=== PATIENT | female | born 1950 | race Caucasian/White ===

== ENCOUNTER 2017-10-26 09:37 | Emergency (ER) | payer MEDICARE, MEDICAID ==
[~2017-10-26] VITALS: Ht 165.1 cm; Wt 75.0 kg
[~2017-10-26 09:37] MED LIST: CALC-1092 PO; IBUP-1986 PO
[2017-10-26 09:40] VITALS: BP 142/92
[2017-10-26] MEDS ORDERED: TRAM50TA2 PO (10:13)
== END 2017-10-26 10:31 | disposition home or self-care (01) ==
LOC: ER 09:38
DX: M25.532 Pain in left wrist (principal); G89.29 Other chronic pain; J44.9 Chronic obstructive pulmonary disease, unspecified; M19.90 Unspecified osteoarthritis, unspecified site; Z98.890 Other specified postprocedural states; Z88.2 Allergy status to sulfonamides; Z79.899 Other long term (current) drug therapy
CPT/HCPCS: 29125; 73110; 99284

== ENCOUNTER 2017-11-29 12:50 | Inpatient (IN) | payer MEDICARE, MEDICAID ==
[~2017-11-29] VITALS: Ht 165.1 cm; Wt 74.0 kg
[2017-11-29] MEDS ORDERED: normal saline 1000ML IV soln IVB ONE (13:35)
[2017-11-29] MEDS ORDERED: pantoprazole 40 MG vial IV ONE (13:35)
[2017-11-29 13:43] LABS: BASOPHILS % (AUTO) 0.2 % (0-1); EOSINOPHILS # (AUTO) 0.1 X10'3 (0-0.9); HEMATOCRIT 46.9 % (35.0-45.0); HEMOGLOBIN 16.5 g/dl (12.0-16.0); LYMPHOCYTES # (AUTO) 1.5 X10'3 (1.1-4.8); LYMPHOCYTES % (AUTO) 11.1 % (21-51); MEAN CORPUSCULAR HEMOGLOBIN 30.8 PG (27.0-31.0); MEAN CORPUSCULAR HGB CONC 35.3 % (33.0-36.5); MEAN CORPUSCULAR VOLUME 87.3 FL (78-98); MEAN PLATELET VOLUME 6.8 FL (7.4-10.4); MONOCYTES # (AUTO) 0.4 X10'3 (0-0.9); NEUTROPHILS # (AUTO) 11.3 X10'3 (1.8-7.7); NEUTROPHILS % (AUTO) 84.7 % (42-75); PLATELET COUNT 328 X10'3 (140-440); RED BLOOD COUNT 5.37 X10'6 (4.20-5.60); RED CELL DISTRIBUTION WIDTH 13.6 % (11.5-14.5); WHITE BLOOD COUNT 13.4 X10'3 (4.5-11.0)
[2017-11-29 13:50] LABS: CLARITY,URINE SLIGHTLY CLOUDY (Clear); COLOR,URINE AMBER (Yellow); GLUCOSE, URINE NEGATIVE (Neg); KETONES,URINE 15 mg/dl (Neg); LEUKOCYTE ESTERASE ,URINE NEGATIVE (Neg); NITRITES, URINE NEGATIVE (Neg); OCCULT BLOOD,URINE MODERATE (Neg); PH,URINE 5.5 (4.8-8.0); PROTEIN,URINE 30 mg/dl (Neg)
[2017-11-29 13:52] LABS: UA COLLECTION TYPE NON-SPECIFIED
[2017-11-29 13:55] LABS: PARTIAL THROMBOPLASTIN TIME 26 SECONDS (22-32); PROTHROMBIN TIME 10.4 SECONDS (9.0-12.0)
[2017-11-29 14:00] LABS: ALANINE AMINOTRANSFERASE 23 U/L (12-78); ALBUMIN 4.4 G/DL (3.4-5.0); ALBUMIN/GLOBULIN RATIO 1.2 (1.1-1.5); ALKALINE PHOSPHATASE 78 IU/L (46-116); ANION GAP 11 (8-16); ASPARTATE AMINO TRANSFERASE 17 U/L (10-37); BILIRUBIN,TOTAL 1.7 MG/DL (0.1-1.0); BLOOD UREA NITROGEN 13 MG/DL (7-18); BUN/CREATININE RATIO 15.1 (6.6-38.0); CALCIUM 9.5 MG/DL (8.5-10.1); CHLORIDE 98 MMOL/L (99-107); CREATININE 0.86 MG/DL (0.40-0.90); GLUCOSE 118 MG/DL (70-104); LIPASE 79 U/L (73-393); POTASSIUM 3.5 MMOL/L (3.5-5.1); SODIUM 138 MMOL/L (135-145); TOTAL CARBON DIOXIDE 28.8 MMOL/L (24-32); TOTAL PROTEIN 8.1 G/DL (6.4-8.2); eGFR 66 ML/MIN
[2017-11-29 14:10] LABS: BACTERIA,URINE 1+ /HPF (Neg); MUCUS STRANDS MANY /LPF (Neg); SQUAMOUS EPITHELIAL CELL,UR MANY /LPF (FEW); WBC,URINE 0-4 /HPF (0-4)
[2017-11-29 14:58] LABS: TOTAL CELLS COUNTED 100
[2017-11-29 14:59] LABS: PLATELET ESTIMATE NORMAL
[2017-11-29] MEDS ORDERED: ATOR20TA10 PO (15:25)
[2017-11-29] MEDS ORDERED: OMEP-50 PO (15:26)
[2017-11-29] MEDS ORDERED: levoFLOXACIN-Levaquin 500mg/D5 100 ML IV ONE (15:50)
[2017-11-29] MEDS ORDERED: metroNIDAZOLE-Flagyl 500mg/NS 100 ML IV ONE (15:50)
[2017-11-29] MEDS: normal saline 1000ml 1,000 ML IV SCH ×2 (16:08→23:48)
[2017-11-29] MEDS ORDERED: potassium Cl 20 mEq SR tablet PO PRN (16:10)
[2017-11-29] MEDS ORDERED: metoclopramide 5 mg/ml inj IV PRN (16:10)
[2017-11-29] MEDS ORDERED: HYDROcodone/acetaminophen 5mg/325mg tablet PO PRN (16:10)
[2017-11-29] MEDS: K and/or MAG REPLACEMENT MC SCH (16:10)
[2017-11-29] MEDS ORDERED: magnesium hydroxide 30ml (MOM) UD suspension PO PRN (16:10)
[2017-11-29] MEDS ORDERED: diphenhydrAMINE 50 mg/ml inj IV PRN (16:10)
[2017-11-29] MEDS ORDERED: magnesium 2GM in 50ml NS 50 ML IV PRN (16:10)
[2017-11-29] MEDS ORDERED: potassium Cl 40MEQ/NS 500ml 500 ML IV PRN ×2 (16:10)
[2017-11-29] MEDS ORDERED: ondansetron/PF 4mg/2ml inj IV PRN (16:10)
[2017-11-29] MEDS ORDERED: morphine 2 MG/ML inj. syringe IV PRN ×2 (16:10)
[2017-11-29] MEDS ORDERED: mag hydrox/Alum hydrox/simeth 30ml oral suspension PO PRN (16:10)
[2017-11-29] MEDS ORDERED: magnesium Cl slow-release 64mg tablet PO PRN (16:10)
[2017-11-29] MEDS ORDERED: magnesium 4gm in 100ml NS 100 ML IV PRN (16:10)
[2017-11-29] MEDS ORDERED: acetaminophen 325mg tablet PO PRN ×2 (16:10)
[2017-11-29 16:52] LABS: HEMATOCRIT 42.8 % (35.0-45.0); MEAN CORPUSCULAR HEMOGLOBIN 30.6 PG (27.0-31.0); MEAN CORPUSCULAR VOLUME 87.4 FL (78-98); MEAN PLATELET VOLUME 6.7 FL (7.4-10.4); PLATELET COUNT 294 X10'3 (140-440); RED CELL DISTRIBUTION WIDTH 13.8 % (11.5-14.5); WHITE BLOOD COUNT 11.4 X10'3 (4.5-11.0)
[2017-11-29 19:30] VITALS: BP 138/75
[2017-11-29] MEDS ORDERED: temazepam 15mg capsule PO PRN (21:00)
[2017-11-29 22:17] LABS: HEMATOCRIT 36.6 % (35.0-45.0); HEMOGLOBIN 13.2 g/dl (12.0-16.0); MEAN CORPUSCULAR HEMOGLOBIN 30.9 PG (27.0-31.0); MEAN CORPUSCULAR HGB CONC 35.9 % (33.0-36.5); MEAN CORPUSCULAR VOLUME 85.8 FL (78-98); MEAN PLATELET VOLUME 6.5 FL (7.4-10.4); PLATELET COUNT 264 X10'3 (140-440); RED BLOOD COUNT 4.27 X10'6 (4.20-5.60); RED CELL DISTRIBUTION WIDTH 13.4 % (11.5-14.5); WHITE BLOOD COUNT 10.5 X10'3 (4.5-11.0)
[2017-11-29] MEDS: metroNIDAZOLE-Flagyl 500mg/NS 100 ML IV SCH (23:47)
[2017-11-30] VITALS: BP 126/66
[2017-11-30 07:00] VITALS: BP 116/78
[2017-11-30 07:41] LABS: BASOPHILS % (AUTO) 0 % (0-1); EOSINOPHILS # (AUTO) 0.1 X10'3 (0-0.9); EOSINOPHILS % (AUTO) 1.7 % (0-6); HEMATOCRIT 36.8 % (35.0-45.0); LYMPHOCYTES # (AUTO) 1.1 X10'3 (1.1-4.8); LYMPHOCYTES % (AUTO) 12.8 % (21-51); MEAN CORPUSCULAR HEMOGLOBIN 30.6 PG (27.0-31.0); MEAN CORPUSCULAR HGB CONC 35.3 % (33.0-36.5); MEAN CORPUSCULAR VOLUME 86.6 FL (78-98); MEAN PLATELET VOLUME 6.4 FL (7.4-10.4); MONOCYTES # (AUTO) 0.4 X10'3 (0-0.9); MONOCYTES % (AUTO) 4.6 % (2-12); NEUTROPHILS # (AUTO) 7.1 X10'3 (1.8-7.7); NEUTROPHILS % (AUTO) 80.9 % (42-75); PLATELET COUNT 254 X10'3 (140-440); RED BLOOD COUNT 4.25 X10'6 (4.20-5.60); RED CELL DISTRIBUTION WIDTH 13.3 % (11.5-14.5); WHITE BLOOD COUNT 8.8 X10'3 (4.5-11.0)
[2017-11-30] MEDS: levoFLOXACIN-Levaquin 750MG/D5 150 ML IV SCH (08:00)
[2017-11-30] MEDS: K and/or MAG REPLACEMENT MC SCH (08:00)
[2017-11-30 08:15] LABS: ALANINE AMINOTRANSFERASE 20 U/L (12-78); ALBUMIN 2.9 G/DL (3.4-5.0); ALKALINE PHOSPHATASE 51 IU/L (46-116); ANION GAP 12 (8-16); ASPARTATE AMINO TRANSFERASE 13 U/L (10-37); BILIRUBIN,TOTAL 1.1 MG/DL (0.1-1.0); BLOOD UREA NITROGEN 7 MG/DL (7-18); BUN/CREATININE RATIO 13.2 (6.6-38.0); CHLORIDE 108 MMOL/L (99-107); CREATININE 0.53 MG/DL (0.40-0.90); GLUCOSE 77 MG/DL (70-104); MAGNESIUM 1.7 MG/DL (1.5-2.4); PHOSPHORUS 1.9 MG/DL (2.3-4.5); POTASSIUM 3.4 MMOL/L (3.5-5.1); SODIUM 142 MMOL/L (135-145); TOTAL CARBON DIOXIDE 22.5 MMOL/L (24-32); TOTAL PROTEIN 5.7 G/DL (6.4-8.2); eGFR > 90 ML/MIN
[2017-11-30] MEDS: atorvastatin 20mg tablet PO SCH (09:30)
[2017-11-30] MEDS: metroNIDAZOLE-Flagyl 500mg/NS 100 ML IV SCH ×2 (09:30→16:40)
[2017-11-30] MEDS: pantoprazole 40 MG vial IV SCH (09:30)
[2017-11-30 10:24] LABS: HEMATOCRIT 35.4 % (35.0-45.0); HEMOGLOBIN 12.7 g/dl (12.0-16.0); MEAN CORPUSCULAR HEMOGLOBIN 30.6 PG (27.0-31.0); MEAN CORPUSCULAR HGB CONC 35.8 % (33.0-36.5); MEAN CORPUSCULAR VOLUME 85.3 FL (78-98); MEAN PLATELET VOLUME 6.5 FL (7.4-10.4); PLATELET COUNT 247 X10'3 (140-440); RED BLOOD COUNT 4.15 X10'6 (4.20-5.60); RED CELL DISTRIBUTION WIDTH 13.6 % (11.5-14.5); WHITE BLOOD COUNT 9.8 X10'3 (4.5-11.0)
[2017-11-30 11:00] VITALS: BP 123/69
[2017-11-30] MEDS: normal saline 1000ml 1,000 ML IV SCH ×3 (11:29→21:05)
[2017-11-30] MEDS: potassium Cl 20 mEq SR tablet PO PRN (15:04)
[2017-11-30 19:00] VITALS: BP 126/63
[2017-11-30] MEDS ORDERED: PEG 3350/Na sulf,bicarb,Cl/KCl oral sol 4 liter bottle PO ONE (19:45)
[2017-12-01] VITALS (9 sets, daily range): BP systolic 121–162; BP diastolic 67–88
[2017-12-01] MEDS: metroNIDAZOLE-Flagyl 500mg/NS 100 ML IV SCH ×2 (00:17→08:45)
[2017-12-01 05:15] LABS: BASOPHILS % (AUTO) 0.3 % (0-1); EOSINOPHILS # (AUTO) 0.1 X10'3 (0-0.9); EOSINOPHILS % (AUTO) 1.5 % (0-6); HEMATOCRIT 33.9 % (35.0-45.0); HEMOGLOBIN 11.9 g/dl (12.0-16.0); LYMPHOCYTES # (AUTO) 1.6 X10'3 (1.1-4.8); LYMPHOCYTES % (AUTO) 20.1 % (21-51); MEAN CORPUSCULAR HEMOGLOBIN 30.4 PG (27.0-31.0); MEAN CORPUSCULAR HGB CONC 35.1 % (33.0-36.5); MEAN CORPUSCULAR VOLUME 86.5 FL (78-98); MEAN PLATELET VOLUME 6.8 FL (7.4-10.4); MONOCYTES # (AUTO) 0.5 X10'3 (0-0.9); MONOCYTES % (AUTO) 6.3 % (2-12); NEUTROPHILS # (AUTO) 5.8 X10'3 (1.8-7.7); NEUTROPHILS % (AUTO) 71.8 % (42-75); PLATELET COUNT 259 X10'3 (140-440); RED BLOOD COUNT 3.92 X10'6 (4.20-5.60); WHITE BLOOD COUNT 8.1 X10'3 (4.5-11.0)
[2017-12-01 05:56] LABS: ALANINE AMINOTRANSFERASE 20 U/L (12-78); ALBUMIN 2.9 G/DL (3.4-5.0); ALKALINE PHOSPHATASE 55 IU/L (46-116); ANION GAP 10 (8-16); ASPARTATE AMINO TRANSFERASE 14 U/L (10-37); BILIRUBIN,TOTAL 0.7 MG/DL (0.1-1.0); BLOOD UREA NITROGEN 4 MG/DL (7-18); BUN/CREATININE RATIO 7.5 (6.6-38.0); CALCIUM 7.7 MG/DL (8.5-10.1); CHLORIDE 110 MMOL/L (99-107); CREATININE 0.53 MG/DL (0.40-0.90); GLUCOSE 86 MG/DL (70-104); MAGNESIUM 1.6 MG/DL (1.5-2.4); PHOSPHORUS 1.9 MG/DL (2.3-4.5); POTASSIUM 3.4 MMOL/L (3.5-5.1); SODIUM 143 MMOL/L (135-145); TOTAL CARBON DIOXIDE 22.7 MMOL/L (24-32); TOTAL PROTEIN 5.7 G/DL (6.4-8.2); eGFR > 90 ML/MIN
[2017-12-01] MEDS: K and/or MAG REPLACEMENT MC SCH (08:00)
[2017-12-01] MEDS: pantoprazole 40 MG vial IV SCH (08:45)
[2017-12-01] MEDS: atorvastatin 20mg tablet PO SCH (08:45)
[2017-12-01] MEDS: levoFLOXACIN-Levaquin 750MG/D5 150 ML IV SCH (11:34)
[2017-12-01] MEDS ORDERED: normal saline 1000ml 1,000 ML IV SCH (13:41)
[2017-12-01] MEDS ORDERED: fentaNYL/PF 50MCG/1 ML 2ML syringe IV PRN (13:45)
[2017-12-01] MEDS ORDERED: simethicone 40mg/0.6ml oral drops 30ml MC ONE (13:45)
[2017-12-01] MEDS ORDERED: MIDAZolam 5mg/ml 2ml vial IV PRN (13:45)
[2017-12-01] MEDS ORDERED: midazolam 2 mg/2 ml injection ONE (14:57)
[2017-12-01] MEDS ORDERED: fentaNYL/PF 50MCG/1 ML 2ML syringe ONE (14:57)
[2017-12-01] MEDS: normal saline 1000ml 1,000 ML IV SCH (16:15)
[2017-12-01] MEDS: lactobacillus rhamnosus 10,000 MMU CELLS/CAPSULE PO SCH (17:30)
[2017-12-02] VITALS: BP 132/68
[2017-12-02 05:27] LABS: BASOPHILS % (AUTO) 0.3 % (0-1); EOSINOPHILS # (AUTO) 0.1 X10'3 (0-0.9); EOSINOPHILS % (AUTO) 2.6 % (0-6); HEMATOCRIT 33.9 % (35.0-45.0); HEMOGLOBIN 11.8 g/dl (12.0-16.0); LYMPHOCYTES # (AUTO) 1.7 X10'3 (1.1-4.8); LYMPHOCYTES % (AUTO) 29.1 % (21-51); MEAN CORPUSCULAR HEMOGLOBIN 30.1 PG (27.0-31.0); MEAN CORPUSCULAR HGB CONC 34.8 % (33.0-36.5); MEAN CORPUSCULAR VOLUME 86.7 FL (78-98); MEAN PLATELET VOLUME 6.9 FL (7.4-10.4); MONOCYTES # (AUTO) 0.4 X10'3 (0-0.9); MONOCYTES % (AUTO) 7.9 % (2-12); NEUTROPHILS # (AUTO) 3.4 X10'3 (1.8-7.7); NEUTROPHILS % (AUTO) 60.1 % (42-75); PLATELET COUNT 283 X10'3 (140-440); RED BLOOD COUNT 3.91 X10'6 (4.20-5.60); RED CELL DISTRIBUTION WIDTH 13.3 % (11.5-14.5); WHITE BLOOD COUNT 5.7 X10'3 (4.5-11.0)
[2017-12-02 05:34] LABS: ALANINE AMINOTRANSFERASE 15 U/L (12-78); ALBUMIN 2.7 G/DL (3.4-5.0); ALBUMIN/GLOBULIN RATIO 0.9 (1.1-1.5); ALKALINE PHOSPHATASE 55 IU/L (46-116); ANION GAP 10 (8-16); ASPARTATE AMINO TRANSFERASE 15 U/L (10-37); BILIRUBIN,TOTAL 0.6 MG/DL (0.1-1.0); BLOOD UREA NITROGEN 2 MG/DL (7-18); BUN/CREATININE RATIO 3.8 (6.6-38.0); CALCIUM 8.3 MG/DL (8.5-10.1); CHLORIDE 109 MMOL/L (99-107); CREATININE 0.53 MG/DL (0.40-0.90); GLUCOSE 81 MG/DL (70-104); MAGNESIUM 1.7 MG/DL (1.5-2.4); POTASSIUM 3.4 MMOL/L (3.5-5.1); SODIUM 144 MMOL/L (135-145); TOTAL PROTEIN 5.6 G/DL (6.4-8.2); eGFR > 90 ML/MIN
[2017-12-02] MEDS: normal saline 1000ml 1,000 ML IV SCH ×2 (05:35→07:51)
[2017-12-02 07:30] VITALS: BP 115/67
[2017-12-02] MEDS ORDERED: pantoprazole 40mg Tablet.DR PO SCH (07:30)
[2017-12-02] MEDS: lactobacillus rhamnosus 10,000 MMU CELLS/CAPSULE PO SCH (07:49)
[2017-12-02] MEDS: atorvastatin 20mg tablet PO SCH (07:50)
[2017-12-02] MEDS: potassium Cl 20 mEq SR tablet PO PRN ×2 (07:50→11:43)
[2017-12-02] MEDS: K and/or MAG REPLACEMENT MC SCH (08:00)
[2017-12-02 11:00] VITALS: BP_SYST 135; BP_SYST 138; BP_DIAS 75; BP_DIAS 76
[2017-12-02 12:02] LABS: OCCULT BLOOD STOOL POSITIVE (Neg)
[2017-12-02 12:48] VITALS: BP 123/67
== END 2017-12-02 16:50 | disposition home or self-care (01) | DRG 393 ==
LOC: ER 12:51 → ED HOLD 16:08 → SUR 3N 19:23
PROVIDERS: ADMIT Family Medicine; ATTEND Family Medicine
PROC: 0DBL8ZX Excision of Transverse Colon, Via Natural or Artificial Opening Endoscopic, Diagnostic (ICD-10-PCS; principal; 2017-12-01)
DX: K55.031 Focal (segmental) acute (reversible) ischemia of large intestine (principal); K57.31 Diverticulosis of large intestine without perforation or abscess with bleeding; K63.3 Ulcer of intestine; J44.9 Chronic obstructive pulmonary disease, unspecified; D62 Acute posthemorrhagic anemia; E87.6 Hypokalemia; K21.0 Gastro-esophageal reflux disease with esophagitis; K22.70 Barrett's esophagus without dysplasia; E78.5 Hyperlipidemia, unspecified; G89.29 Other chronic pain; M19.90 Unspecified osteoarthritis, unspecified site; F17.210 Nicotine dependence, cigarettes, uncomplicated; Z60.2 Problems related to living alone; Z96.652 Presence of left artificial knee joint; Z90.710 Acquired absence of both cervix and uterus; Z88.2 Allergy status to sulfonamides; Z82.49 Family history of ischemic heart disease and other diseases of the circulatory system; Z82.5 Family history of asthma and other chronic lower respiratory diseases; Z83.3 Family history of diabetes mellitus; Z71.6 Tobacco abuse counseling
CPT/HCPCS: 36415; 45380; 71045; 74176; 80053; 81001; 82272; 83690; 83735; 84100; 85025; 85027; 85610; 85730; 86885; 86900; 86901; 87040; 87045; 87046; 87070; 89055; 96361; 96365; 96375; 99285; A4620; C9113; G0500; J1956; J2250; J3010; J3490; J7030

== ENCOUNTER 2018-10-26 11:03 | Day surgery (SDC) | payer MEDICARE, MEDICAID ==
[2018-10-25 13:18] LABS: BASOPHILS % (AUTO) 0.6 % (0-1); EOSINOPHILS # (AUTO) 0.1 X10'3 (0-0.9); EOSINOPHILS % (AUTO) 1.4 % (0-6); LYMPHOCYTES # (AUTO) 2.8 X10'3 (1.1-4.8); MEAN CORPUSCULAR HEMOGLOBIN 30.1 PG (27.0-31.0); MEAN CORPUSCULAR VOLUME 88.5 FL (78-98); MEAN PLATELET VOLUME 7.1 FL (7.4-10.4); MONOCYTES # (AUTO) 0.4 X10'3 (0-0.9); MONOCYTES % (AUTO) 6.1 % (2-12); NEUTROPHILS # (AUTO) 2.8 X10'3 (1.8-7.7); NEUTROPHILS % (AUTO) 45.9 % (42-75); PRE OP PLATELET COUNT 319 X10'3 (140-440); RED BLOOD COUNT 4.98 X10'6 (4.20-5.60); RED CELL DISTRIBUTION WIDTH 13.5 % (11.5-14.5)
[2018-10-25 13:23] LABS: CLARITY,URINE CLEAR (Clear); COLOR,URINE STRAW (Yellow); GLUCOSE, URINE NEGATIVE (Neg); KETONES,URINE NEGATIVE (Neg); LEUKOCYTE ESTERASE ,URINE NEGATIVE (Neg); NITRITES, URINE NEGATIVE (Neg); OCCULT BLOOD,URINE NEGATIVE (Neg); PH,URINE 6.5 (4.8-8.0); PROTEIN,URINE NEGATIVE (Neg); UROBILINOGEN,URINE 0.2 E.U/dL (0.2-1.0)
[2018-10-25 13:26] LABS: UA COLLECTION TYPE CLN CATCH MIDSTREAM
[2018-10-25 13:31] LABS: PARTIAL THROMBOPLASTIN TIME 26 SECONDS (22-32); PROTHROMBIN TIME 9.8 SECONDS (9.0-12.0)
[2018-10-25 13:34] LABS: ALBUMIN 4.4 G/DL (3.4-5.0); ALBUMIN/GLOBULIN RATIO 1.4 (1.1-1.5); ALKALINE PHOSPHATASE 89 IU/L (46-116); BLOOD UREA NITROGEN 11 MG/DL (7-18); BUN/CREATININE RATIO 15.5 (6.6-38.0); CALCIUM 9.1 MG/DL (8.5-10.1); CHLORIDE 102 MMOL/L (99-107); CREATININE 0.71 MG/DL (0.40-0.90); PRE OP ALT 22 U/L (30-65); PRE OP ANION GAP 9 (8-16); PRE OP AST 17 U/L (10-37); PRE OP BILIRUB, TOTAL 0.6 MG/DL (0.0-1.0); PRE OP GLUCOSE 95 MG/DL (70-104); PRE OP POTASSIUM 3.6 MMOL/L (3.4-5.1); PRE OP SODIUM 139 MMOL/L (135-145); TOTAL PROTEIN 7.6 G/DL (6.4-8.2); eGFR 82 ML/MIN
[~2018-10-26] VITALS: Ht 165.1 cm; Wt 74.8 kg
[2018-10-26] VITALS (8 sets, daily range): BP systolic 138–150; BP diastolic 75–99
[~2018-10-26 11:03] MED LIST changes: +ACET-2119 PO; +ATOR20TA10 PO; -CALC-1092 PO; -IBUP-1986 PO; +OMEP-50 PO; +albuterol 2.5 MG/3 ML nebule NEB ONE; +cefazolin/dext.iso 2gm/100 ML IV ONE; +famotidine 20mg tablet PO ONE; +ringers solution, lacted 1,000 ML IV SCH
[2018-10-26] MEDS ORDERED: BUPIVAcaine/PF 2.5mg/ml (0.25%) 10ml vial ONE ×2 (12:27→15:32)
[2018-10-26] MEDS ORDERED: fentaNYL/PF 50MCG/1 ML 2ML syringe ONE (15:37)
[2018-10-26] MEDS ORDERED: midazolam 2 mg/2 ml injection ONE (15:37)
[2018-10-26] MEDS ORDERED: propofol inj 20 ML IV ONE (15:38)
[2018-10-26] MEDS ORDERED: rocuronium 10mg/ml inj IV ONE (15:38)
[2018-10-26] MEDS ORDERED: sevoflurane 250ml liquid IH ONE (15:39)
[2018-10-26] MEDS ORDERED: ringers solution, lacted 1,000 ML IV SCH (16:18)
[2018-10-26] MEDS ORDERED: morphine 4 MG/ML inj SYRINge IV PRN ×2 (16:20)
[2018-10-26] MEDS ORDERED: ondansetron/PF 4mg/2ml inj IV PRN (16:20)
[2018-10-26] MEDS ORDERED: proCHLORperazine 10 MG/2 ml inj IV PRN (16:20)
[2018-10-26] MEDS ORDERED: meperidine/PF 25mg/ml syringe IV PRN ×3 (16:20)
[2018-10-26] MEDS ORDERED: glycopyrrolate 0.2mg/ml inj ONE (16:32)
[2018-10-26] MEDS ORDERED: neostigmine methylsulfate 1 MG/ML 10ml vial ONE (16:32)
--- NOTE | 2018-10-26 16:45 | NUR ---
Received from OR via [facility] , accompanied by Anesthesiologist DR HOLLY and report given by Anesthesiolgist. LAP SITES TO ABD X 4 CDI. ABD SOFT, PT STATES SHE IS "TOUGH" AND PAIN IS TOLERABLE 3/10 AT THIS TIME.
[2018-10-26] MEDS ORDERED: acetaminophen 325mg tablet PO PRN (17:15)
--- NOTE | 2018-10-26 17:45 | NUR ---
PT WAS DISCHARGED TO HOME SAFELY VIA W/C TO PERSONAL VEH BEING DRIVEN BY HER FRIEND. PT STATES READINESS FOR DC TO HOME. ABD REMAINS SOFT, LAP SITES CDI. PT TOLERATED JUICE AND SAYS HER PAIN IS TOLERABLE. ALL BELONGINGS W/ PT UPON DC TO HOME. DC INSTRUCTIONS ALSO REVIEWED W/ PT AND SHE STATES UNDERSTANDING.
== END 2018-10-26 17:45 | disposition home or self-care (01) ==
LOC: PAS 11:03
PROVIDERS: ATTEND Surgery
DX: K80.10 Calculus of gallbladder with chronic cholecystitis without obstruction (principal); J44.9 Chronic obstructive pulmonary disease, unspecified; M19.90 Unspecified osteoarthritis, unspecified site; G89.29 Other chronic pain; E66.9 Obesity, unspecified; K21.9 Gastro-esophageal reflux disease without esophagitis; E78.00 Pure hypercholesterolemia, unspecified; J45.998 Other asthma; F19.11 Other psychoactive substance abuse, in remission; F17.210 Nicotine dependence, cigarettes, uncomplicated; Z68.27 Body mass index [BMI] 27.0-27.9, adult; Z79.01 Long term (current) use of anticoagulants; Z87.19 Personal history of other diseases of the digestive system; Z90.710 Acquired absence of both cervix and uterus; Z96.652 Presence of left artificial knee joint; Z86.19 Personal history of other infectious and parasitic diseases; Z86.69 Personal history of other diseases of the nervous system and sense organs; Z88.2 Allergy status to sulfonamides; Z79.891 Long term (current) use of opiate analgesic; Z79.899 Other long term (current) drug therapy; Z98.890 Other specified postprocedural states
CPT/HCPCS: 36415; 47562; 71046; 80053; 81003; 82948; 85025; 85610; 85730; 93005; J0690; J2250; J2704; J2710; J3010; J3490; J7030; J7120; A7000

== ENCOUNTER 2020-11-16 07:09 | Emergency (ER) | payer MEDICARE, MEDICAID ==
[~2020-11-16] VITALS: Ht 165.1 cm; Wt 81.8 kg
[~2020-11-16 07:09] MED LIST changes: -albuterol 2.5 MG/3 ML nebule NEB ONE; -cefazolin/dext.iso 2gm/100 ML IV ONE; -famotidine 20mg tablet PO ONE; -ringers solution, lacted 1,000 ML IV SCH
[2020-11-16 07:12] VITALS: BP 159/91
--- NOTE | 2020-11-16 07:23 | NUR ---
Dr Tomas at bedside.
--- NOTE | 2020-11-16 07:27 | NUR ---
X-ray at bedside.
== END 2020-11-16 08:07 | disposition home or self-care (01) ==
LOC: ER 07:09
DX: M25.531 Pain in right wrist (principal); M25.561 Pain in right knee; J44.9 Chronic obstructive pulmonary disease, unspecified; M19.90 Unspecified osteoarthritis, unspecified site; G89.29 Other chronic pain; Z98.890 Other specified postprocedural states; Z88.2 Allergy status to sulfonamides; Z79.899 Other long term (current) drug therapy; W19.XXXA Unspecified fall, initial encounter; Y93.89 Activity, other specified; Y92.89 Other specified places as the place of occurrence of the external cause; Y99.8 Other external cause status
CPT/HCPCS: 29125; 73110; 73564; 99284

== ENCOUNTER 2022-11-30 16:34 | Emergency (ER) | payer MEDICARE, MEDICAID ==
[~2022-11-30] VITALS: Ht 165.1 cm; Wt 72.0 kg
[~2022-11-30 16:34] MED LIST changes: -OMEP-50 PO; +OMEP20CA16 PO
[2022-11-30 17:44] LABS: BASOPHILS # (AUTO) 0.1 X10'3 (0-0.2); BASOPHILS % (AUTO) 0.6 % (0-1); EOSINOPHILS % (AUTO) 0.3 % (0-6); HEMATOCRIT 45.7 % (35.0-45.0); HEMOGLOBIN 15.5 g/dl (12.0-16.0); LYMPHOCYTES # (AUTO) 1.3 X10'3 (1.1-4.8); LYMPHOCYTES % (AUTO) 14.7 % (21-51); MEAN CORPUSCULAR HEMOGLOBIN 29.7 PG (27.0-31.0); MEAN CORPUSCULAR VOLUME 87.3 FL (78-98); MEAN PLATELET VOLUME 6.3 FL (7.4-10.4); MONOCYTES # (AUTO) 0.7 X10'3 (0-0.9); MONOCYTES % (AUTO) 8.2 % (2-12); NEUTROPHILS # (AUTO) 6.9 X10'3 (1.8-7.7); NEUTROPHILS % (AUTO) 76.2 % (42-75); PLATELET COUNT 293 X10'3 (140-440); RED BLOOD COUNT 5.24 X10'6 (4.20-5.60); RED CELL DISTRIBUTION WIDTH 13.4 % (11.5-14.5); WHITE BLOOD COUNT 9.1 X10'3 (4.5-11.0)
[2022-11-30 17:46] LABS: CLARITY,URINE CLOUDY (Clear); COLOR,URINE YELLOW (Yellow); GLUCOSE, URINE NEGATIVE (Neg); KETONES,URINE TRACE mg/dl (Neg); LEUKOCYTE ESTERASE ,URINE LARGE (Neg); NITRITES, URINE POSITIVE (Neg); OCCULT BLOOD,URINE LARGE (Neg); PROTEIN,URINE >=300 mg/dl (Neg)
[2022-11-30 17:47] LABS: UA COLLECTION TYPE CLN CATCH MIDSTREAM
[2022-11-30 17:52] LABS: BACTERIA,URINE 2+ /HPF (Neg); MUCUS STRANDS NONE SEEN /LPF (Neg); RBC,URINE 0-2 /HPF (0-2); SQUAMOUS EPITHELIAL CELL,UR NONE SEEN /LPF (FEW); WBC,URINE TNTC /HPF (0-4)
[2022-11-30 17:59] LABS: ALANINE AMINOTRANSFERASE 20 U/L (12-78); ALBUMIN 4.3 G/DL (3.4-5.0); ALBUMIN/GLOBULIN RATIO 1.2 (1.1-1.5); ALKALINE PHOSPHATASE 61 IU/L (46-116); ANION GAP 9 (8-16); ASPARTATE AMINO TRANSFERASE 19 U/L (10-37); BILIRUBIN,TOTAL 1.1 MG/DL (0.1-1.0); BLOOD UREA NITROGEN 12 MG/DL (7-18); BUN/CREATININE RATIO 16.7 (6.6-38.0); CALCIUM 9.7 MG/DL (8.5-10.1); CHLORIDE 100 MMOL/L (99-107); CREATININE 0.72 MG/DL (0.40-0.90); GLUCOSE 111 MG/DL (70-104); LIPASE 60 U/L (73-393); POTASSIUM 3.7 MMOL/L (3.5-5.1); SODIUM 133 MMOL/L (135-145); TOTAL CARBON DIOXIDE 24.5 MMOL/L (24-32); TOTAL PROTEIN 7.8 G/DL (6.4-8.2); eGFR 80 ML/MIN
[2022-11-30] MEDS ORDERED: ondansetron/PF 4mg/2ml inj IV ONE ×2 (18:50→19:25)
[2022-11-30] MEDS ORDERED: CefTRIAXone 2gm/D5W 50ml BAG 50 ML IV ONE (18:50)
[2022-11-30] MEDS ORDERED: normal saline 1000ML IV soln IVB ONE (18:50)
[2022-11-30] MEDS ORDERED: ketorolac tromethamine 15mg/ml inj. IV ONE (19:05)
[2022-11-30] MEDS ORDERED: ketorolac trometh. 30mg/ml inj. IV ONE (19:05)
[2022-11-30 19:36] VITALS: BP 127/77
--- NOTE | 2022-11-30 19:44 | NUR ---
agree with [employer] general assessment.
[2022-11-30] MEDS ORDERED: amox tr/potassium clavulanate 875/125mg TAB PO ONE (20:30)
[2022-11-30] MEDS ORDERED: AMOX-580 PO (20:42)
[2022-11-30] MEDS ORDERED: ONDA4TAB12 PO (20:42)
== END 2022-11-30 20:59 | disposition home or self-care (01) ==
LOC: ER 16:34
DX: N39.0 Urinary tract infection, site not specified (principal); J44.9 Chronic obstructive pulmonary disease, unspecified; M19.90 Unspecified osteoarthritis, unspecified site; Z88.2 Allergy status to sulfonamides
CPT/HCPCS: 36415; 74176; 80053; 81001; 83690; 85025; 87088; 87186; 96365; 96375; 99285; J0696; J1885; J2405; J7030; 87077

== ENCOUNTER 2024-01-13 11:35 | Outpatient (CLI) | payer MEDICARE, MEDICAID ==
[~2024-01-13 11:35] MED LIST changes: +LISI20TA28 PO
== END 2024-01-13 23:59 | disposition home or self-care (01) ==
LOC: RAD 11:35
PROVIDERS: ATTEND Student in an Organized Health Care Education/Training Program
DX: M79.641 Pain in right hand (principal); M79.642 Pain in left hand
CPT/HCPCS: 73110; 73130

== ENCOUNTER 2025-08-23 15:59 | Emergency (ER) | payer MEDICARE, MEDICAID ==
[~2025-08-23] VITALS: Ht 162.6 cm; Wt 64.0 kg
--- NOTE | 2025-08-23 16:04 | Physician Documentation ---
History of Present Illness ~ Stated Complaint: ANXIETY Time Seen by MD: 17:32 Primary Medical Doctor: [facility] 75-year-old female presents to the ED via EMS for complaint of acute onset dizziness and increased shortness of breath. She states she does not have COPD but has smoked for over 50 years. Denies any chest pain but reports tingling. She is A&O x4 properly situation. No complaints of focal deficits or weakness. Day of Onset: Aug 23, 2025 Medication Reconciliation Allergies: Coded Allergies: Sulfa (Sulfonamide Antibiotics) (Verified Allergy, Unknown, 08/23/25) Scheduled Atorvastatin Calcium (Lipitor), 20 MG PO DAILY, (Reported) Lisinopril (Lisinopril), 0.5 TAB PO DAILY, (Reported) Omeprazole (Omeprazole), 20 MG PO BID, (Reported) Scheduled PRN Acetaminophen (Tylenol), 2 TABLET PO BID PRN for pain, (Reported) Past Medical History Past Medical History: COPD, Arthritis, Chronic Pain, Breast Cancer Past Surgical History: noncontributory, orthopedic surgeries Alcohol Use: None Drug Use: none Lives with: Family Lives In: Home Review of Systems All Other Systems at this time: Reviewed and Negative ROS As stated above in the HPI, otherwise all systems are reviewed and negative. Physical Exam Physical Exam General: Alert, no apparent distress. Respiratory: Diminished lung sounds bilaterally no crackles or rales Chest: No accessory muscle use. Cardiovascular: Regular rate and rhythm, no murmurs. Neurologic: Oriented x4. Psychiatric: Normal mood and affect. Skin: Normal color, warm and dry. No edema, no ecchymosis. Progress Results/Orders Results/Orders Orders - MACHO BEATTY KNOWLEDGE MANAGEMENT ADVISOR Chest,Single View (08/23/25 16:47) Monitor (08/23/25 16:04) Saline Lock (08/23/25 16:04) Oxygen (08/23/25 16:04) Hs Troponin I W Calculations (08/23/25 18:04) Hs Troponin I W Calculations (08/23/25 19:04) Completed Orders - MACHO BEATTY KNOWLEDGE MANAGEMENT ADVISOR Chest,Single View (08/23/25 16:47) Cbc/Diff (08/23/25 16:04) BMP (08/23/25 16:04) PBNP (08/23/25 16:04) Electrocardiogram (08/23/25 16:04) Hs Troponin I W Calculations (08/23/25 16:04) Vital Signs 08/23/25 16:16 Temp 98.3 Pulse 87 Resp 18 B/P (MAP) 136/71 Pulse Ox 98 O2 Flow Rate 0 Laboratory Tests Test 08/23/25 16:15 White Blood Count 6.3 Red Blood Count 5.02 Hemoglobin 15.2 Hematocrit 43.9 Mean Corpuscular Volume 87.5 Mean Corpuscular Hemoglobin 30.3 Mean Corpuscular Hemoglobin Concent 34.6 Red Cell Distribution Width 13.8 Platelet Count 385 Mean Platelet Volume 6.1 L Neutrophils (%) (Auto) 59.5 Lymphocytes (%) (Auto) 30.3 Monocytes (%) (Auto) 8.2 Eosinophils (%) (Auto) 0.9 Basophils (%) (Auto) 1.1 H Neutrophils # (Auto) 3.8 Lymphocytes # (Auto) 1.9 Monocytes # (Auto) 0.5 Eosinophils # (Auto) 0.1 Basophils # (Auto) 0.1 CBC Comment Sodium Level 135 Potassium Level 4.2 Chloride Level 100 Carbon Dioxide Level 26.0 Anion Gap 9 Blood Urea Nitrogen 16 Creatinine 0.76 Estimated GFR/1.73 m2 75 BUN/Creatinine Ratio 21.1 H Glucose Level 102 Calcium Level 8.9 Troponin I High Sensitivity 5 Pro-B-Type Natriuretic Peptide 75 Albumin 4.5 Chemistry Comments Medical Decision Making Additional information obtaine: old records Findings Patient waited mostly in the lobby during her ED stay. When I saw her in the rapid him she reported she felt better. She has not received any emergency treatment however her laboratory values were unremarkable as was her chest x-ray and EKG Do think that there is some underlying anxiety and COPD secondary to chronic cigarette smoking I will send her home with an inhaler and advised her to stop smoking. However I offered nicotine patches but she declined Heart Score: 5 Differential Dx:Considerations: Include: CHF, COPD, myocardial infarction, panic attack Departure Disposition: HOME / SELF CARE / HOMELESS Impression: Primary Impression: COPD (chronic obstructive pulmonary disease) Condition: Improved Discharge Instructions: Chronic Obstructive Pulmonary Disease, [id number] Referrals: NO PRIMARY CARE PROVIDER (PCP) Prescriptions albuterol inhaler (Pro-Air Inhaler) 8.5 Gm Inhaler 2 PUFFS INH Q4HPRN PRN for wheezing for 30 Days, #18 GM Prov: MACHO BEATTY NP 08/23/25 Signature Scribe Signature: f Attestation: Scribed for Macho Beatty Np by Macho Beatty - NELLI . 08/23/25 17:41 MACHO BEATTY NP Aug 23, 2025 16:04
[2025-08-23 16:16] VITALS: BP 136/71; RESP 18; TEMP 98.3; O2SAT 98
--- NOTE | 2025-08-23 16:16 | ELECTROCARDIOGRAPH REPORT ---
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 WALTER Zimmer Measurements Intervals [place] Rate: 93 P: 85 ID: [id number] QRS: 93 QRSD: 90 T: 66 QT: 377 QTc: 469 Interpretive Statements Sinus rhythm Consider right atrial enlargement Right axis deviation Baseline wander in lead(s) V5 Electronically Signed On 08-24-2025 16:52:[address] WALTER Zimmer Please click the below link to view image of tracing.
[2025-08-23 16:26] LABS: MEAN PLATELET VOLUME 6.1 FL (7.4-10.4); RED CELL DISTRIBUTION WIDTH 13.8 % (11.5-14.5)
[2025-08-23 16:49] LABS: CREATININE 0.76 MG/DL (0.40-0.90); PRO BRAIN NATRIURETIC PEPTIDE 75 PG/ML (0-125); TOTAL CARBON DIOXIDE 26.0 MMOL/L (24-32); eCRCL 57 ML/MIN; eGFR 75 ML/MIN
--- NOTE | 2025-08-23 17:02 | RADIOLOGY REPORT ---
EXAM: DI CHEST,SINGLE VIEW HISTORY: CP TECHNIQUE: 1 view of the chest COMPARISON: DI CHEST,SINGLE VIEW on DOS: 09/15/23 FINDINGS/IMPRESSION: LUNGS: No pleural effusion, consolidation, or pneumothorax. MEDIASTINUM: Unremarkable. BONES: No acute osseous abnormality. OTHER: None.
[2025-08-23] MEDS ORDERED: ALBU8HFA INH (17:40)
[2025-08-23 17:48] VITALS: PULSE 16
== END 2025-08-23 17:57 | disposition home or self-care (01) ==
LOC: ER 15:59
DX: J44.9 Chronic obstructive pulmonary disease, unspecified (principal); G89.29 Other chronic pain; F41.9 Anxiety disorder, unspecified; M19.90 Unspecified osteoarthritis, unspecified site; F17.200 Nicotine dependence, unspecified, uncomplicated; Z88.2 Allergy status to sulfonamides; Z85.3 Personal history of malignant neoplasm of breast; Z79.899 Other long term (current) drug therapy; Z98.890 Other specified postprocedural states
CPT/HCPCS: 36415; 71045; 80048; 83880; 84484; 85025; 93005; 99285

== ENCOUNTER 2025-08-25 16:50 | Emergency (ER) | payer MEDICARE, MEDICAID ==
[~2025-08-25] VITALS: Ht 162.6 cm; Wt 66.0 kg
[~2025-08-25 16:50] MED LIST changes: +ALBU8HFA INH
[2025-08-25 17:53] LABS: MEAN PLATELET VOLUME 6.2 FL (7.4-10.4); RED CELL DISTRIBUTION WIDTH 13.7 % (11.5-14.5)
[2025-08-25 18:09] LABS: CREATININE 0.85 MG/DL (0.40-0.90); TOTAL CARBON DIOXIDE 26.5 MMOL/L (24-32); eCRCL 51 ML/MIN; eGFR 66 ML/MIN
[2025-08-25 18:42] LABS: LEUKOCYTE ESTERASE ,URINE NEGATIVE (Neg); NITRITES, URINE NEGATIVE (Neg); OCCULT BLOOD,URINE NEGATIVE (Neg)
[2025-08-25 18:52] LABS: UA COLLECTION TYPE NON-SPECIFIED
--- NOTE | 2025-08-25 20:01 | Physician Documentation ---
History of Present Illness General Chief Complaint: Mechanical Fall Stated Complaint: SYNCOPE Time Seen by MD: 18:53 Primary Medical Doctor: STEVE Mode of Arrival: EMS History of Present Illness Initial Comments This is a very pleasant 75-year-old female who comes in for evaluation of unusual tingling sensation in bilateral upper and lower extremities that is followed by severe weakness of bilateral upper and lower extremities. No obvious trigger provocation. Has been going on for several days. Did not attempt to treat it. Came in today because she states that both of her legs suddenly gave out. No focal deficits when inquired in plain [place]. Did not attempt to treat it. When she fell today she denies head strike, denies loss of consciousness. Denies blood thinners. She does report frontal headache. No particular palliating or aggravating factors. Did not attempt to treat it. She denies any chest pain, denies any difficulty breathing, denies nausea, vomiting, diarrhea, abdominal pain, denies dysuria hematuria, denies frequency. She does not smoke, does not drink, does not do drugs Medication Reconciliation Allergies: Coded Allergies: Sulfa (Sulfonamide Antibiotics) (Verified Allergy, Unknown, 08/23/25) Scheduled Atorvastatin Calcium (Lipitor), 20 MG PO DAILY, (Reported) Lisinopril (Lisinopril), 0.5 TAB PO DAILY, (Reported) Omeprazole (Omeprazole), 20 MG PO BID, (Reported) Scheduled PRN Acetaminophen (Tylenol), 2 TABLET PO BID PRN for pain, (Reported) albuterol inhaler (Pro-Air Inhaler), 2 PUFFS INH Q4HPRN PRN for wheezing Past Medical History Past Medical History: COPD, Arthritis, Chronic Pain, Breast Cancer Past Surgical History: noncontributory, orthopedic surgeries Smoking: Cigarettes Alcohol Use: None Drug Use: none Lives with: Family Lives In: Home Review of Systems ROS 10 point review of systems was performed and unless noted above in HPI is negative for acute process/complaint. Physical Exam Physical Exam Vital Signs: Temperature: 97.6, Source: Temporal, Heart Rate: 72, Respiratory Rate: 18, BP: 109/53, Pulse Oximetry: 95, Weight: 66.000 Physical Exam GENERAL: Awake, alert, oriented, GCS 15, no apparent distress, non-toxic appearing, answers questions, follows commands appropriately. Examined in bed 6., accompanied by HEENT: Atraumatic, normocephalic, pupils equal, extraocular muscles intact, sclerae anicteric, mucus membranes moist, oropharynx is clear, no stridor. NECK: supple, full active range of motion, trachea midline, no thyromegaly, no lymphadenopathy, no JVD. CARDIOVASCULAR: regular rate/rhythm, no murmurs/gallops/rubs, Pulses are 2+ in all extremities and symmetric. Capillary refill less than 2 seconds. PULMONARY: Nonlabored, good air movement ,no respiratory distress, speaking in full sentences, clear to auscultation bilaterally, no wheezing, no ronchi, no rales, no accessory muscle use. GASTROINTESTINAL: Soft, non-tender, non-distended, normal active bowel sounds, no organomegaly, no pulsatile masses, no CVA tenderness. NEUROLOGIC: Lucid with normal mental status. Normal facial symmetry. Moves all extremities symmetrically and with purpose. No truncal ataxia. Speech is fluid without evidence of dysarthria or aphasia, no focal deficits appreciated. MUSCULOSKELETAL: There is full range of motion of all extremities. There is no joint pain or joint swelling or joint erythema. There is no muscle pain or tenderness or swelling. EXTREMITIES: warm, well-perfused, no cyanosis, no clubbing, no edema, no acute deformities. Skin: warm, dry, no rashes or lesions, no jaundice, no petechiae orpurpura. No ecchymosis. PSYCHIATRIC: Normal affect, normal insight, normal concentration. Focused exam: [] Progress Results/Orders Results/Orders Orders - MARILU BANEGAS DO Chest,Single View (08/25/25 19:55) Monitor (08/25/25 19:55) Saline Lock (08/25/25 19:55) Ct Head (08/25/25 19:55) Completed Orders - MARILU BANEGAS DO ESR (08/25/25 19:55) Chest,Single View (08/25/25 19:55) Normal Saline 1000ml (0.9% Sodium Chlori (08/25/25 19:55) Ct Head (08/25/25 19:55) Hs Troponin I W Calculations (08/25/25 19:55) Hs Troponin I W Calculations (08/25/25 21:55) Medications Received in ER Medications (Trade) Dose Ordered Sig/Nichelle Route PRN Reason Start Time Stop Time Status Last Admin Dose Admin (0.9% sodium chloride (NS) 1000ml IV soln) 1,000 ml ONCE ONCE IVB 08/25/25 19:55 08/25/25 19:57 DC 08/25/25 20:34 1,000 ML Vital Signs 08/25/25 08/25/25 08/25/25 08/25/25 16:51 17:35 17:37 19:11 Temp 97.6 97.6 Pulse 91 86 72 Resp 15 19 19 18 B/P (MAP) 123/54 109/53 (71) 109/53 (71) Pulse Ox 96 94 95 08/25/25 22:49 Temp 97.6 Pulse 66 Resp 16 B/P (MAP) 123/62 (82) Pulse Ox 94 Laboratory Tests Test 08/25/25 17:43 08/25/25 18:24 08/25/25 19:05 08/25/25 22:10 White Blood Count 7.0 Red Blood Count 4.68 Hemoglobin 14.1 Hematocrit 41.2 Mean Corpuscular Volume 88.2 Mean Corpuscular Hemoglobin 30.1 Mean Corpuscular Hemoglobin Concent 34.2 Red Cell Distribution Width 13.7 Platelet Count 344 Mean Platelet Volume 6.2 L Neutrophils (%) (Auto) 66.2 Lymphocytes (%) (Auto) 24.0 Monocytes (%) (Auto) 8.6 Eosinophils (%) (Auto) 0.7 Basophils (%) (Auto) 0.5 Neutrophils # (Auto) 4.6 Lymphocytes # (Auto) 1.7 Monocytes # (Auto) 0.6 Eosinophils # (Auto) 0.1 Basophils # (Auto) 0.0 CBC Comment Erythrocyte Sedimentation Rate 2 Sodium Level 131 L Potassium Level 3.8 Chloride Level 98 L Carbon Dioxide Level 26.5 Anion Gap 7 L Blood Urea Nitrogen 13 Creatinine 0.85 Estimated GFR/1.73 m2 66 BUN/Creatinine Ratio 15.3 Glucose Level 96 Lactic Acid Level 0.6 Calcium Level 8.3 L Total Bilirubin 1.0 Aspartate Amino Transf (AST/SGOT) 15 Alanine Aminotransferase (ALT/SGPT) 17 Alkaline Phosphatase 71 Troponin I High Sensitivity 6 6 Troponin I High Sens Percent Delta 20 0 Troponin I Hi Sens Absolute Change 1 0 C-Reactive Protein < 0.05 Pro-B-Type Natriuretic Peptide 56 Total Protein 6.7 Albumin 4.1 Globulin 2.6 L Albumin/Globulin Ratio 1.6 H Thyroid Stimulating Hormone (TSH) 0.81 Free Thyroxine 1.38 Chemistry Comments Urine Specimen Description Non-specified Urine Color Yellow Urine Clarity Clear Urine pH 6.0 Urine Specific [place] 1.010 Urine Protein Negative Urine Glucose (UA) Negative Urine Ketones 15 H Urine Occult Blood Negative Urine Nitrite Negative Urine Bilirubin Negative Urine Urobilinogen 0.2 Urine Leukocyte Esterase Negative Urine Culture Indicated Not ind Volume Urine Centrifuged 10 ml Urine Comment SARS-CoV-2 Antigen (Rapid) Negative EKG/XRAY/CT/US/VASC/MRI EKG : Additional Comment EKG was obtained and interpreted by myself shows sinus rhythm of 97, normal WA interval, narrow QRS, no QT prolongation, normal axis, no STEMI, fairly peaked T-waves. Medical Decision Making Additional information obtaine: old records, family Findings Facility Status: ED Holds, RME process The plan was discussed with the patient, who demonstrates clear understanding of the plan and is in agreement with the plan unless otherwise noted in the chart. All questions have been answered, all concerns were addressed unless otherwise documented. I was available throughout their ED stay for frequent reassessment and questions. Differential Diagnoses (considered and possible or likely): [Differential diagnosis for generalized weakness in the 75-year-old lady is enormous and includes but not limited to dehydration, hypoglycemia, electrolyte derangement, urinary tract infection, pneumonia, occult bacteremia, CHF, ACS, less likely intracranial process such as tumor or bleed. Clinically there does not evidence of lateralizing signs to suspect a stroke. Hypovitaminosis is also in differential diagnosis. Thyroid derangement is also in differential.] ??Differential Diagnoses (considered and unlikely, not requiring evaluation currently): [No evidence of traumatic injury to the head] MDM Data Please see HPI for the following: Independent Historians and external Records Review. Historian: [Patient] Independent Historians: ?[Has been, record review] Medication Management: [Reviewed medication list] Social History and determinants: [Reviewed] Please see the body of the note for the following: Any independent interpretations of ECG, imaging studies. All vitals signs/haemodynamics, ordered tests were independently reviewed and interpreted by myself. Nursing triage complaint and vitals reviewed, additional nursing notes were reviewed as available and I agree unless otherwise noted or documented in contradiction in the chart Vital Signs: Independently reviewed Labs: Independently interpreted Imaging: Independently interpreted Old Medical Records: Independently reviewed, see HPI for relevant summary and information Pulse Oximetry: [95%] interpreted as [normal on room air] by me [Card Setter: [Regular Rate, Regular rhythm, no ectopy, NSR] reviewed and interpreted by me] Additionally notably showing: [Hemodynamics reviewed. The patient isn't febril e, not tachycardic, no evidence of hypotension respiratory distress. CBC is normal, no leukocytosis, no anemia, normal platelets, no neutrophilic predominance. ESR is normal. Metabolic panel is unremarkable, no evidence of dehydration. CRP is negative. BNP is negative. Initial and repeat troponins are negative. Thyroid studies are normal. UA is nondiagnostic for UTI. COVID is negative. Advanced imaging was obtained. CT head shows no acute intracranial process. Chest x-ray was obtained showing no acute cardiopulmonary disease.] Tests considered but not ordered include: [Not applicable] Social Determinants of Health Impact: Patient was evaluated in [facility] [place] to healthcare due to below par ratio of patient to medical providers. [] Comorbid Conditions Impacting Present Evaluation and Care/Treatment: [See list] Management Discussions with other Healthcare Providers: [None] Treatment and Disposition Medication Management (Given or considered): []. See EMR for details Consideration for Hospitalization/Escalation/Deescalation of Care: Admission for observation has been considered, [however the patient is able to tolerate p.o., their symptoms are controlled, they are able to rely on oral medications, and their chief complaint/diagnosis can be managed on outpatient basis.] ?ED Course:?[Admission for observation has been offered, patient declines and desires to go home. She passed a trial of ambulation.] ?Shared decision making:?[Patient is hemodynamically stable for discharge home with follow with their primary care provider. [ ] Specific and cautious return precautions provided and discussed with full understanding. Any incidental findings were also discussed and follow up recommendations given. [] All questions answered. Patient/family were able to verbalize back return precautions. Patient/family agree to plan. Copies of imaging and laboratory studies were provided.] Code status:?FULL Please see the full Electronic Medical Record for full details of nursing documentation, medications list, other records of complete past medical history and conditions, vital signs, laboratory studies, and any radiologic study interpretations by radiologists. Portions of this note were completed using [employer] dictation software and as a result there may exist minor errors in spelling. I have reviewed elements of past family and social history and agree as included in note. Differential Diagnosis See body of main note for differential diagnosis Departure Disposition: 01 HOME / SELF CARE / HOMELESS Impression: Primary Impression: Ground-level fall Additional Impressions: Generalized weakness Numbness and tingling of both lower extremities Numbness and tingling of both upper extremities Condition: Improved Discharge Instructions: Fall Prevention in the Home, Adult, [id number], Weakness Referrals: NO PRIMARY CARE PROVIDER (PCP) Education Educated: Patient, Family Educated regarding: diagnosis, treatment, prognosis, need for follow up Signature Scribe Signature: No scribe Attestation: Date: Aug 25, 2025 Time: 20:01 This note accurately reflects clinical decisions, work performed by myself, DO BASSAM Sahu NICHOLAS M DO Aug 25, 2025 20:01
--- NOTE | 2025-08-25 20:13 | RADIOLOGY REPORT ---
CHEST RADIOGRAPH Indication: Weakness Technique: Single frontal view of the chest was obtained. Comparison: DI CHEST,SINGLE VIEW on DOS: 08/23/25 Findings: No focal consolidation. No significant pleural effusion. No pneumothorax. Stable cardiomediastinal silhouette. IMPRESSION: No acute pulmonary process.
--- NOTE | 2025-08-25 20:22 | RADIOLOGY REPORT ---
EXAM: CT CT HEAD INDICATION: Generalized weakness, fall COMPARISON: MR MRI HEAD on DOS: 09/16/23 TECHNIQUE: CT of the head without intravenous contrast. Radiation Dose Information: CT Dose: CTDI volume is 49 mGy. Dose-length product is 867 mGy*cm The dose indicators for CT are the volume Computed Tomography (CT) Dose Index (CTDIvol) and the Dose Length Product (DLP), and are measured in units of mGy and mGy-cm, respectively. These indicators are not patient dose, but values generated from the CT scanner acquisition factors. The report includes radiation exposure data for exposures received during this examination. Findings: Scattered hypoattenuation in the periventricular and subcortical white matter, suggestive of chronic microvascular disease. The ventricles and sulci are mildly enlarged, compatible with generalized parenchymal volume loss. There is no mass- effect, hemorrhage, midline shift, or abnormal extra-axial fluid collection visible. No calvarial fracture. Essentially clear visualized paranasal sinuses. Mastoid air cells are clear. IMPRESSION: No acute intracranial hemorrhage or mass effect.
[2025-08-25] MEDS: normal saline 1000ML IV soln IVB ONE (20:34)
[2025-08-25 20:51] LABS: PRO BRAIN NATRIURETIC PEPTIDE 56 PG/ML (0-125)
[2025-08-25 22:49] VITALS: BP 123/62
[2025-08-26] VITALS: PULSE 88; RESP 16; TEMP 97.6; O2SAT 98
--- NOTE | 2025-08-28 09:05 | ELECTROCARDIOGRAPH REPORT ---
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 Roel Aldana Measurements Intervals [place] Rate: 97 P: 79 MD: 148 QRS: 81 QRSD: 90 T: 74 QT: 361 QTc: 459 Interpretive Statements Sinus rhythm LIBBY, consider biatrial enlargement Borderline right axis deviation Electronically Signed On 08-28-2025 9:40:[address] Roel Aldana Please click the below link to view image of tracing.
== END 2025-08-26 00:01 | disposition home or self-care (01) ==
LOC: ER 16:50
DX: R20.2 Paresthesia of skin (principal); R53.1 Weakness; J44.9 Chronic obstructive pulmonary disease, unspecified; G89.29 Other chronic pain; M19.90 Unspecified osteoarthritis, unspecified site; F17.210 Nicotine dependence, cigarettes, uncomplicated; R06.02 Shortness of breath; Z88.2 Allergy status to sulfonamides; Z85.3 Personal history of malignant neoplasm of breast; Z79.899 Other long term (current) drug therapy; Z98.890 Other specified postprocedural states; Z20.822 Contact with and (suspected) exposure to COVID-19; W18.30XA Fall on same level, unspecified, initial encounter; Y93.89 Activity, other specified; Y92.89 Other specified places as the place of occurrence of the external cause; Y99.8 Other external cause status
CPT/HCPCS: 36415; 70450; 71045; 80053; 81003; 83605; 83880; 84439; 84443; 84484; 85025; 85651; 86140; 87811; 96360; 99285; A4353; J7030; 93005

== ENCOUNTER 2025-08-31 07:28 | Emergency (ER) | payer MEDICARE, MEDICAID ==
[~2025-08-31] VITALS: Ht 162.6 cm; Wt 70.0 kg
--- NOTE | 2025-08-31 07:43 | ELECTROCARDIOGRAPH REPORT ---
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 Roel Aldana Measurements Intervals [place] Rate: 77 P: -46 RI: 148 QRS: 79 QRSD: 103 T: 66 QT: 399 QTc: 452 Interpretive Statements Sinus or ectopic atrial tachycardia Paired ventricular premature complexes Baseline wander in lead(s) V1 Electronically Signed On 08-31-2025 19:06:[address] Roel Aldana Please click the below link to view image of tracing.
[2025-08-31 08:52] LABS: MEAN PLATELET VOLUME 6.4 FL (7.4-10.4); RED CELL DISTRIBUTION WIDTH 13.2 % (11.5-14.5)
[2025-08-31 09:00] LABS: CREATININE 0.58 MG/DL (0.40-0.90); TOTAL CARBON DIOXIDE 25.9 MMOL/L (24-32); eCRCL 75 ML/MIN; eGFR > 90 ML/MIN
--- NOTE | 2025-08-31 09:04 | RADIOLOGY REPORT ---
ABDOMEN SERIES TWO VIEWS REASON FOR EXAM: Constipation TECHNIQUE: Upright and supine views of the abdomen are obtained. COMPARISON: CT ABDOMEN PELVIS on DOS: 11/30/22 FINDINGS: There is a non-obstructive bowel gas pattern. No free intra- abdominal gas is present. Surgical clips project over the right upper quadrant, likely from prior cholecystectomy. The colonic stool burden is small. There are degenerative changes in the visualized spine. There is severe atherosclerotic disease. IMPRESSION: The colonic stool burden is small. No radiographic evidence of constipation.
--- NOTE | 2025-08-31 09:57 | Physician Documentation ---
History of Present Illness Chief Complaint: Abdominal Pain w/vomiting Stated Complaint: CONSTIPATION Time Seen by MD: 07:43 OK to notify your PCP?: Yes Primary Medical Doctor: STEVE Mode of Arrival: EMS HPI 75-year-old female patient with a history of right breast cancer in remission, cholecystectomy, total hysterectomy and with a history of hypertension and gastroesophageal reflux disease as well as dyslipidemia was brought to the emergency room by ambulance because she is stating that she has constipation. She also has chronic tobacco dependency and she smoked half a pack a day. The patient has some nausea and vomiting this morning. She vomited out some coffee she is trying to drink. She says she has been taking Dulcolax and MiraLax at home for the constipation. No other symptoms. Medication Reconciliation Allergies: Coded Allergies: Sulfa (Sulfonamide Antibiotics) (Verified Allergy, Unknown, 08/23/25) Scheduled Atorvastatin Calcium (Lipitor), 20 MG PO DAILY, (Reported) Lisinopril (Lisinopril), 0.5 TAB PO DAILY, (Reported) Omeprazole (Omeprazole), 20 MG PO BID, (Reported) Scheduled PRN Acetaminophen (Tylenol), 2 TABLET PO BID PRN for pain, (Reported) albuterol inhaler (Pro-Air Inhaler), 2 PUFFS INH Q4HPRN PRN for wheezing Past Medical History Past Medical History: COPD, Arthritis, Chronic Pain, Breast Cancer Past Surgical History: noncontributory, orthopedic surgeries Alcohol Use: None Drug Use: none Lives with: Family Lives In: Home Review of Systems ROS As stated above in the HPI, otherwise all systems are reviewed and negative. Physical Exam Vital Signs: Temperature: 98.5, Heart Rate: 87, Respiratory Rate: 21, BP: 117/68, Pulse Oximetry: 94, Weight: 70.000 Oxygen Flow Rate: 0 Physical Exam Reviewed vital signs and they are well within normal range. Const: Not in acute cardiopulmonary distress Head: Atraumatic Eyes: Normal Conjunctiva ENT: Normal External Ears, Nose and Mouth. Moist mucous membrane Neck: Full range of motion. No meningismus Resp: Clear to auscultation bilaterally. Normal work of breathing Cardio: Heart rate is 86/minute. Regular rate and rhythm, no murmurs. Skin well perfused Abd: Soft, non-tender, non-distended. Normal bowel sounds. No rebound or guarding Skin: No petechiae or rashes. Warm and dry Back: No midline or flank tenderness Ext: No cyanosis, or edema Neuro: Awake and alert Psych: Normal Mood and Affect Progress Results/Orders Results/Orders Orders - FELICITY JOYCE MD Urinalysis, Cult If Indicated (08/31/25 07:42) Abd W/Decub Or Erect (08/31/25 07:50) Completed Orders - FELICITY JOYCE MD Cbc/Diff (08/31/25 07:42) BMP (08/31/25 07:42) Lipase (08/31/25 07:42) CMP (08/31/25 07:42) Electrocardiogram (08/31/25 07:42) Abd W/Decub Or Erect (08/31/25 07:50) TSH (08/31/25 07:50) Vital Signs 08/31/25 08/31/25 08/31/25 07:35 07:39 09:32 Temp 97.8 98.5 Pulse 79 87 Resp 17 21 B/P (MAP) 157/76 117/68 (84) Pulse Ox 95 94 O2 Flow Rate 0 0 Laboratory Tests Test 08/31/25 08:39 White Blood Count 6.6 Red Blood Count 4.56 Hemoglobin 13.9 Hematocrit 39.7 Mean Corpuscular Volume 87.1 Mean Corpuscular Hemoglobin 30.5 Mean Corpuscular Hemoglobin Concent 35.0 Red Cell Distribution Width 13.2 Platelet Count 342 Mean Platelet Volume 6.4 L Neutrophils (%) (Auto) 76.0 H Lymphocytes (%) (Auto) 15.0 L Monocytes (%) (Auto) 7.8 Eosinophils (%) (Auto) 0.7 Basophils (%) (Auto) 0.5 Neutrophils # (Auto) 5.0 Lymphocytes # (Auto) 1.0 L Monocytes # (Auto) 0.5 Eosinophils # (Auto) 0.0 Basophils # (Auto) 0.0 CBC Comment Sodium Level 133 L Potassium Level 4.3 Chloride Level 99 Carbon Dioxide Level 25.9 Anion Gap 8 Blood Urea Nitrogen 8 Creatinine 0.58 Estimated GFR/1.73 m2 > 90 BUN/Creatinine Ratio 13.8 Glucose Level 91 Calcium Level 8.9 Total Bilirubin 1.0 Aspartate Amino Transf (AST/SGOT) 19 Alanine Aminotransferase (ALT/SGPT) 18 Alkaline Phosphatase 66 Total Protein 7.0 Albumin 3.9 Globulin 3.1 Albumin/Globulin Ratio 1.3 Lipase 28 Thyroid Stimulating Hormone (TSH) 0.78 Chemistry Comments Medical Decision Making Additional information obtaine: old records Findings During the physical examination, the findings suggestive of acute life- threatening condition such as JVD, tracheal deviation, acidotic breathing, noisy stridorous breath sounds, pulses paradoxus, muffled heart sounds, unequal breath sounds, abdominal rigidity and rebound tenderness, focal neurological deficits, cool clammy skin, severe hypotension, severe tachycardia or bradycardia are absent. Abdominal examination does not reveal any signs of peritoneal irritation. Patient's CBC showed WBC 6.6 with normal differential and H and H13.9 and 39.7 with platelets 342. Sodium 133 potassium 4.3 chloride 99 bicarb 25.9 BUN eight creatinine 0.58 and glucose 91. LFT is within normal limit as well as normal lipase at 28. TSH is also normal was 0.78. Abdominal series x-ray does not reveal any gas another diaphragm as also radiologically that is no evidence of constipation. UA shows UTI. I relayed the message to the patient about the findings of the test results and the patient is reassured and discharged from the emergency room in the stable condition. Patient does not have identifiable emergent medical condition that warrants inpatient medical care at this time. The patient is deemed safe for discharge with outpatient follow up. DISCLAIMER Inadvertent spelling and grammatical errors,inadvertent category consultant errors,syntax errors, grammatical errors, and spelling errors are likely due to EMR/dictation software use and do not reflect on the overall quality of patient care. Note that the electronic time recorded on this note does not necessarily reflect the actual time of the patient encounter. Differential Dx:Considerations: AAA, Bowel obstruction, Constipation, Gastroenteritis, Urinary obstruction, Urinary tract infection Departure Disposition: HOME / SELF CARE / HOMELESS Impression: Primary Impression: Dyspepsia Additional Impression: Acute urinary tract infection Condition: Stable Discharge Instructions: Abdominal Pain (Nonspecific), Urinary Tract Infection, Adult Additional Instructions: Thank you for coming to our Emergency Department today. Medication as instructed. Please ask your nurse or provider if you have questions about your care today and do not leave until all your questions have been answered. Please use any medications given as directed and follow-up with your doctor (or the doctor you were referred to) in the next 1-3 days. Your primary care doctor can help to coordinate outpatient specialty care and provide authorization for specialty referral as needed. If you do not have a primary care doctor you may follow up at a [facility]. You may also use motrin and tylenol as needed for fever and/or pain unless instructed otherwise by your provider or nurse. Indications for more urgent follow-up have been discussed, but you may return to the Emergency Department at ANY time for any worrisome or worsening symptoms. County Facilities: County Facilities: [facility]: [facility] [place] Address:[address] [place] [address] [facility]: [place] Address:[facility] [place] [address] [facility]: [facility] Address:[address] [place] [address] [facility] Address:[address] [place] [address] Registration Billing Pharmacy Referrals [facility] Address:[address] [place] [address] Referrals: NO PRIMARY CARE PROVIDER (PCP) Prescriptions Famotidine (Pepcid) 20 Mg Tablet 1 TAB PO Q12H for 30 Days, #60 TAB 0 Refills Prov: FELICITY JOYCE MD 08/31/25 Nitrofurantoin Monohyd/M-Cryst (Macrobid 100 mg Capsule) 100 Mg Capsule 1 CAP PO Q12H for 10 Days, #20 CAP 0 Refills Prov: FELICITY JOYCE MD 08/31/25 Signature Scribe Signature: x Attestation: FELICITY Garza MD Aug 31, 2025 09:57
[2025-08-31 10:43] LABS: LEUKOCYTE ESTERASE ,URINE MODERATE (Neg); NITRITES, URINE NEGATIVE (Neg); OCCULT BLOOD,URINE TRACE-INTACT (Neg); UA COLLECTION TYPE CLN CATCH MIDSTREAM
[2025-08-31 10:54] LABS: MUCUS STRANDS NONE SEEN /LPF (Neg); SQUAMOUS EPITHELIAL CELL,UR FEW /LPF (FEW); WBC CLUMPS,URINE FEW /HPF (NEGATIVE)
[2025-08-31] MEDS ORDERED: NITR100C6 PO (12:17)
[2025-08-31] MEDS ORDERED: FAMO-129 PO (12:17)
[2025-08-31] MEDS: nitrofuran monohydrate/nitrofuran macrocrysal 100 MG (MacroBID) capsule PO ONE (12:24)
[2025-08-31 12:46] VITALS: BP 125/65; PULSE 78; RESP 17; TEMP 98.5; O2SAT 96
== END 2025-08-31 12:44 | disposition home or self-care (01) ==
LOC: ER 07:29
DX: N39.0 Urinary tract infection, site not specified (principal); E78.5 Hyperlipidemia, unspecified; I10 Essential (primary) hypertension; J44.9 Chronic obstructive pulmonary disease, unspecified; M19.90 Unspecified osteoarthritis, unspecified site; F17.210 Nicotine dependence, cigarettes, uncomplicated; Z88.2 Allergy status to sulfonamides; Z88.8 Allergy status to other drugs, medicaments and biological substances; Z90.49 Acquired absence of other specified parts of digestive tract; Z90.710 Acquired absence of both cervix and uterus
CPT/HCPCS: 36415; 74019; 80053; 81001; 83690; 84443; 85025; 87077; 87088; 87186; 93005; 99285